=== PATIENT | female | born 1975 | race American Indian/Alaskan Native ===

== ENCOUNTER 2017-02-20 15:37 | Emergency (ER) | payer MEDICARE ==
[2017-02-20] MEDS ORDERED: DUONEB 0.5 MG-3 MG/3 ML SOLN IH ONE (15:42)
[2017-02-20 16:13] LABS: Basophils % (Auto) 0.2 % (0.0-1.8); Eosinophils % (Auto) 1.7 % (0.0-4.3); Hematocrit 54.9 % (30.3-42.9); Hemoglobin 17.6 gm/dl (10.1-14.3); Mean Corpuscular HGB Conc 32 % (30-34); Mean Corpuscular Hemoglobin 31 pg (28-32); Mean Corpuscular Volume 96 fl (79-97); Platelet Count 191 K/mm3 (140-440); Red Blood Count 5.71 M/mm3 (3.65-5.03); Red Cell Distribution Width 14.6 % (13.2-15.2); White Blood Count 10.6 K/mm3 (4.5-11.0)
--- NOTE | 2017-02-20 16:16 | Emergency Department Report ---
ED Shortness of Breath HPI - General Chief Complaint: Dyspnea/Respdistress Stated Complaint: TALHA Time Seen by Provider: 02/20/17 15:46 Source: patient, EMS, RN notes reviewed Mode of arrival: Stretcher Limitations: No Limitations - History of Present Illness Initial Comments: 41-year-old female presents to the emergency department via EMS complaining of difficulty breathing. Patient states symptoms began last night. She reports generalized achy pain and burning in her chest. She reports dry cough. There has been no fever. Patient states she is on home oxygen, but does not know why. She states her sleep doctor put her on it. There are no other complaints. MD Complaint: shortness of breath -: Gradual, Last night Severity: mild Quality: aching Consistency: constant Improves With: nothing Worsens With: nothing Associated Symptoms: other (diarrhea) Treatments Prior to Arrival: bronchodilator, other (steroids) - Related Data Home Oxygen Therapy: Yes Home Oxygen Amount: 3 Liters Previous Rx's Medication Instructions Recorded Last Taken Type ALBUTEROL NEB's [Proventil 0.083% 2.5 mg IH Q4H PRN #20 neb 02/20/17 Unknown Rx NEBS] predniSONE [Deltasone] 3 tab PO QDAY #15 tablet 02/20/17 Unknown Rx Allergies Allergy/AdvReac Type Severity Reaction Status Date / Time oxycodone Allergy Rash Verified 02/20/17 15:41 ED Review of Systems ROS: Stated complaint: TALHA Other details as noted in HPI Comment: All other systems reviewed and negative Respiratory: cough, shortness of breath Gastrointestinal: diarrhea Musculoskeletal: myalgia ED Past Medical Hx - Past Medical History Previous Medical History?: Yes Hx Hypertension: No Hx CVA: No Hx Heart Attack/AMI: No Hx Congestive Heart Failure: No Hx Diabetes: No Hx Deep Vein Thrombosis: No Hx Pulmonary Embolism: No Hx GERD: Yes Hx Liver Disease: No Hx Renal Disease: No Hx of Cancer: No Hx Sickle Cell Disease: No Hx Arthritis: No Hx Headaches / Migraines: No Hx Seizures: No Hx Kidney Stones: No Hx Psychiatric Treatment: No Hx Asthma: No Hx COPD: No Hx Tuberculosis: No Hx Dementia: No Hx HIV: No Additional medical history: Obstructive sleep apnea - Surgical History Past Surgical History?: Yes Hx Coronary Stent: No Hx Open Heart Surgery: No Hx Pacemaker: No Hx Internal Defibrillator: No Hx Cholecystectomy: No Hx Appendectomy: No Hx Breast Surgery: No Additional Surgical History: Partial hysterectomy, biospy of thyroid gland, biopsy of lung tissue - Family History Family history: no significant - Social History Smoking Status: Current Every Day Smoker Substance Use Type: Marijuana - Medications Home Medications: Home Medications Medication Instructions Recorded Confirmed Last Taken Type ALBUTEROL NEB's [Proventil 0.083% 2.5 mg IH Q4H PRN #20 neb 02/20/17 Unknown Rx NEBS] predniSONE [Deltasone] 3 tab PO QDAY #15 tablet 02/20/17 Unknown Rx ED Physical Exam - General Limitations: No Limitations General appearance: alert, in distress (moderate respiratory distress) - Head Head exam: Present: atraumatic, normocephalic - Eye Eye exam: Present: normal appearance, PERRL, EOMI - ENT ENT exam: Present: normal exam, normal orophraynx, mucous membranes moist - Neck Neck exam: Present: normal inspection, full ROM. Absent: tenderness - Respiratory Respiratory exam: Present: respiratory distress (moderate tachypnea), wheezes ( diffuse bilateral posterior) - Cardiovascular Cardiovascular Exam: Present: normal rhythm, tachycardia, normal heart sounds - GI/Abdominal GI/Abdominal exam: Present: soft, normal bowel sounds. Absent: distended, tenderness - Extremities Exam Extremities exam: Present: normal inspection, full ROM. Absent: tenderness - Back Exam Back exam: Present: normal inspection, full ROM. Absent: tenderness - Neurological Exam Neurological exam: Present: alert, oriented X3. Absent: motor sensory deficit - Skin Skin exam: Present: warm, intact, diaphoretic ED Course Vital Signs 02/20/17 02/20/17 02/20/17 15:40 15:46 16:11 Temperature 99.8 F H Pulse Rate 130 H Pulse Rate [ 130 H Anterior Bilateral Throughout] Respiratory 31 H 31 H Rate Respiratory 26 H Rate [Anterior Bilateral Throughout] Blood Pressure 126/58 Blood Pressure 126/58 [Right] O2 Sat by Pulse 94 94 Oximetry 02/20/17 02/20/17 02/20/17 16:29 17:17 17:26 Temperature Pulse Rate 120 H Pulse Rate [ 127 H 120 H Anterior Bilateral Throughout] Respiratory 22 Rate Respiratory 25 H 25 H Rate [Anterior Bilateral Throughout] Blood Pressure Blood Pressure 126/69 [Right] O2 Sat by Pulse 92 Oximetry 05/11/17 17:50 Temperature Pulse Rate Pulse Rate [ 123 H Anterior Bilateral Throughout] Respiratory Rate Respiratory 24 Rate [Anterior Bilateral Throughout] Blood Pressure Blood Pressure [Right] O2 Sat by Pulse Oximetry ED Medical Decision Making - Lab Data Result diagrams: 02/20/17 15:50 02/20/17 15:50 - EKG Data -: EKG Interpreted by [facility] EKG shows normal: sinus rhythm, intervals, QRS complexes, ST-T waves Rate: tachycardia - EKG Data When compared to previous EKG there are: previous EKG unavailable Interpretation: other (left axis deviation, no ischemic changes) - Radiology Data Radiology results: report reviewed, image reviewed Chest x-ray shows slightly crowded lung markings. There are no acute abnormalities. - Medical Decision Making Lab and imaging results reviewed and discussed with the patient. Patient reports feeling much better following multiple nebulizer treatments. Patient will be discharged home at this time on oral steroids to follow up with her primary care physician. - Differential Diagnosis bronchitis, pulmonary edema, COPD Critical care attestation.: If time is entered above; I have spent that time in minutes in the direct care of this critically ill patient, excluding procedure time. ED Disposition Clinical Impression: Acute bronchitis Qualifiers: Bronchitis organism: unspecified organism Qualified Code(s): J20.9 - Acute bronchitis, unspecified Disposition: DISCHARGED TO HOME OR SELFCARE Is pt being admited?: No Condition: Stable Instructions: Acute Bronchitis (ED) Prescriptions: ALBUTEROL NEB's [Proventil 0.083% NEBS] 2.5 mg IH Q4H PRN #20 neb PRN Reason: Shortness Of Breath predniSONE [Deltasone] 3 tab PO QDAY #15 tablet Referrals: PRIMARY CARE, [Primary Care Provider] - 3-5 Days Time of Disposition: 18:07
[2017-02-20 16:36] LABS: Anion Gap 14 mmol/L; Blood Urea Nitrogen 6 mg/dL (7-17); Carbon Dioxide 30 mmol/L (22-30); Chloride 100.9 mmol/L (98-107); Glucose 118 mg/dL (65-100); Potassium 4.6 mmol/L (3.6-5.0); Sodium 140 mmol/L (137-145)
--- NOTE | 2017-02-20 16:47 | XRay Report ---
PORTABLE CHEST INDICATION: Dyspnea. COMPARISON: None similar at this institution. FINDINGS: Portable, frontal chest radiograph demonstrates normal cardiomediastinal silhouette. Slightly crowded lung markings/slight atelectasis and limited inspiration. Subtle left costophrenic angle blunting not entirely excluded. EKG leads. Unremarkable bones. CONCLUSION: Slight congestion possible, as described. PA and lateral chest radiographs would help further clarify, if warranted. Thank you for the opportunity to participate in this patient's care.
[2017-02-20] MEDS ORDERED: PROVENTIL IH ONE (17:18)
[2017-02-20 18:26] VITALS: BP 121/77
== END 2017-02-20 18:14 | disposition home or self-care (01) ==
LOC: ED 15:37
DX: J20.9 Acute bronchitis, unspecified (principal); K21.9 Gastro-esophageal reflux disease without esophagitis; F17.200 Nicotine dependence, unspecified, uncomplicated
CPT/HCPCS: 36415; 71010; 80048; 83735; 84484; 85025; 93005; 93010; 94640; 99285